=== PATIENT | female | born 1985 | race Caucasian/White ===

== ENCOUNTER 2023-09-03 07:29 | Day surgery (SDC) | payer BC ==
[~2023-09-03] VITALS: Ht 175.3 cm; Wt 79.5 kg
[~2023-09-03 07:29] MED LIST: LR 1,000 ML IV SCH; Ondansetron 4 MG/2 ML VIAL IV PRN
[2023-09-03] MEDS ORDERED: PROTONIX 40MG T40 MG PO (08:01)
[2023-09-03] MEDS ORDERED: ZOCOR 20MG20 MG PO (08:02)
[2023-09-03] MEDS ORDERED: ADIPEX-P37.5 MG PO (08:03)
[2023-09-03] MEDS ORDERED: TOPAMAX 25MG25 M1 PO (08:03)
[2023-09-03] MEDS ORDERED: TRULANCE3 MG PO (08:03)
[2023-09-03 08:22] VITALS: BP 116/82; PULSE 71; TEMP 97.5
[2023-09-03] MEDS ORDERED: Lidocaine PF 2% (20 MG/ML) 5 ML VIAL ONE (08:31)
[2023-09-03 09:35] VITALS: BP 113/73; PULSE 88; TEMP 97.4
[2023-09-03 09:50] VITALS: BP 98/63; PULSE 88
[2023-09-03 10:05] VITALS: BP 113/80; PULSE 78
--- NOTE | 2023-09-03 10:15 | NUR ---
0935 RETURNS TO ROOM 2 PER CART. AWAKE, ALERT. RESP UNLABORED. AMBULATES TO RECLINER WITH STANDBY ASSIST. DENIES NAUSEA OR ABD PAIN. VITAL SIGNS OBTAINED. CALL LIGHT AT SIDE 0940 DR ROBERTSON HERE TO VISIT WITH PATIENT 0955 [address] PO JU[place] AND MUFF[place] WITHOUT NAUSEA 1000 DISCHARGE INSTRUCTIONS REVIEWED. PATIENT VERBALIZES UNDERSTANDING. COPY PROVIDED IN DISCHARGE FOLDER 4652 DRESSES SELF
== END 2023-09-03 10:15 | disposition home or self-care (01) ==
LOC: SDCO 07:29
DX: D12.4 Benign neoplasm of descending colon (principal); K57.30 Diverticulosis of large intestine without perforation or abscess without bleeding; R93.3 Abnormal findings on diagnostic imaging of other parts of digestive tract; K59.04 Chronic idiopathic constipation; K57.92 Diverticulitis of intestine, part unspecified, without perforation or abscess without bleeding; K21.9 Gastro-esophageal reflux disease without esophagitis; Z79.899 Other long term (current) drug therapy
CPT/HCPCS: J2704; J7120